=== PATIENT | male | born 1980 | race Hispanic/Latino ===

== ENCOUNTER → 2018-12-15 | Day surgery (SDC) | payer BC ==
[~2018-12-15] MED LIST: FENTANYL CITRATE/PF 100MCG/2 ML INJ ONE; GLUCAGON FOR INJ 1 MG VIAL ONE; HYOSCYAMINE SULFATE 0.5 MG/ML INJ ONE; LIDOCAINE HCL 2% LOCAL INJ 5 ML SDV VIAL INJ ONE; MIDAZOLAM HCL 2 MG/2 ML VIAL ONE; PROPOFOL IV EMULSION 10 MG/ML 50 ML VIAL ONE
--- NOTE | 2018-12-15 20:50 | Operative Report ---
DATE OF PROCEDURE: 12/15/2018 SURGEON: Fabrice Najera MD PROCEDURE: EGD with biopsies and colonoscopy with polypectomy and biopsies. INDICATIONS: 1. For EGD, upper abdominal pain. 2. For colonoscopy, right lower quadrant abdominal pain. MEDICATION: The patient was done under MAC. Please see anesthesiologist's note. PROCEDURE IN DETAIL: With the patient in left lateral decubitus position, flexible fiberoptic Olympus gastroscope was introduced into the esophagus under direct visualization without any difficulty. There was some patchy erythema noted in distal esophagus. The scope was then advanced with ease into the stomach. Mucosa overlying the antrum and the body revealed some patchy erythema and low grade to moderate edema and biopsies were obtained and sent to stain for H. pylori. Pylorus was of normal contour and shape, was intubated with ease and the scope was advanced all the way to the second portion of the duodenum. Biopsies were obtained from the proximal second portion. There were some mild inflammatory changes noted in the duodenal bulb. Biopsies were obtained. The scope was then withdrawn back into the stomach and retroflexed. Mucosa overlying the fundus and the cardia appeared to be within normal limits. The scope was then straightened out, it was subsequently withdrawn. The patient tolerated the procedure well. IMPRESSION: 1. Distal esophagitis, mild. 2. Gastritis, biopsied. Biopsies sent to stain for Helicobacter pylori. 3. Duodenitis, mild. PLAN: Follow up histology. Initiate Protonix 40 mg one p.o. q.a.m. a.c. The patient was then turned around. After adequate lubrication of the anal canal, flexible fiberoptic Olympus colonoscope was inserted into the rectum with ease and advanced all the way to the cecum. Ileocecal valve was intubated and the scope was advanced into the terminal ileum. Biopsies were obtained. The scope was then withdrawn back into the colon and biopsies were obtained from the cecum, attempting to elucidate the cause of the patient's right lower quadrant pain. Overall, the mucosa overlying the cecum, ascending, transverse, descending, and sigmoid grossly appeared to be within normal limits. One polyp was hot biopsied from the rectum. The scope was then retroflexed into the distal rectum and small internal hemorrhoids were noted, none of which was actively bleeding. The scope was then straightened out, it was subsequently withdrawn. The patient tolerated the procedure well. IMPRESSION: 1. Rectal polyp, hot biopsied. 2. Internal hemorrhoids, none actively bleeding. PLAN: Follow up histology. Initiate high-fiber low-fat diet. Increase oral intake to a minimum of 64 ounces of water a day. Start VSL #3 one p.o. daily. Timing of followup colonoscopy, pending pathology report. If polyp turns out to be of the adenomatous variety, then a followup colonoscopy in 5 years would be in order. Fabrice Najera MD [facility] [place] /[id number] cc: Aury Fleming MD
--- OUTSIDE RECORDS SUMMARY | 2018-12-17 10:34 | XMS REPORT | Clinical Summary ---
Author Author [facility] Address Unknown Phone Unavailable Care Team Providers Care Associate Merchant Name Role Phone Chinedu Ross MD PCP Allergies No Known Allergies Medications End Date Status Medication Sig Dispensed Refills Start Date 03/25/2018 testosterone cypionate Inject 1 mL 5 mL 4 (DEPO-TESTOSTERONE) 200 (200 mg 7 mg/mL total) into injectionIndications: the shoulder, Hypogonadism in male thigh, or buttocks every 14 (fourteen) days for 360 days. Active Problems Problem Noted Date Hypogonadism in male 03/10/2017 Family History Medical History Relation Name Comments No Known Problems Father Diabetes Mother Relation Name Status Comments Father Alive Mother Alive Social History Date Tobacco Use Types Packs/Day Years Used Never Smoker Alcohol Use Drinks/Week oz/Week Comments No Sex Assigned at Date Recorded Not on file Industry Job Start Date Occupation Not on file Not on file Not on file Travel End Travel History Travel Start No recent travel history available. Last Filed Vital Signs Not on file Plan of Treatment Health Maintenance Due Date Last Done Comments INFLUENZA VACCINE 05/16/2018 Results Not on fileafter 12/16/2017 Insurance Payer Benefit Subscriber ID Type Phone Address Plan / Group BCBS BCBS xxxxxxxxxxxx PPO CHOICE PPO/JERRY L EMPL PPO Advance Directives Patient has advance care planning documents on file. For more information, abdiaziz brooks contact: Pierre Alvarez [address] [place] [address]
== END | disposition home or self-care (01) ==
LOC: OR 14:33
PROVIDERS: ATTEND Internal Medicine Gastroenterology
DX: K29.80 Duodenitis without bleeding (principal); K20.9 Esophagitis, unspecified; K29.50 Unspecified chronic gastritis without bleeding; K29.40 Chronic atrophic gastritis without bleeding; B96.81 Helicobacter pylori [H. pylori] as the cause of diseases classified elsewhere; K62.1 Rectal polyp; K64.8 Other hemorrhoids; R10.31 Right lower quadrant pain; R19.03 Right lower quadrant abdominal swelling, mass and lump; R14.2 Eructation; F41.9 Anxiety disorder, unspecified
CPT/HCPCS: 43239; 45380; 45384; J1610; J1980; J2001; J2250; J2704; 45378

== ENCOUNTER 2019-03-01 19:28 | Emergency (ER) | payer BC ==
[~2019-03-01] VITALS: Ht 177.8 cm; Wt 86.2 kg
--- OUTSIDE RECORDS SUMMARY | 2019-03-01 19:31 | XMS REPORT ---
Author Author [facility] Address Unknown Phone Unavailable Care Team Providers Care Sand Conditioner Name Role Phone Unavailable Unavailable Problems This patient has no known problems. Allergies, Adverse Reactions, Alerts This patient has no known allergies or adverse reactions. Medications This patient has no known medications. Encounters Start Date/Time End Date/Time Encounter Type Admission Type Attending [facility] Care Facility Care Department Encounter ID 2019-01-19 06:29:00 2019-01-19 06:29:00 Emergency E [id number] 2018-03-01 22:09:00 2018-03-01 22:09:00 Emergency E [facility] [id number]
== END 2019-03-01 19:48 | disposition home or self-care (01) ==
LOC: ER 19:28
DX: N63.10 Unspecified lump in the right breast, unspecified quadrant (principal)
CPT/HCPCS: 99282

== ENCOUNTER → 2019-03-06 | Outpatient (CLI) | payer BC ==
--- NOTE | 2019-03-06 19:02 | Diagnostic Imaging Report ---
Hepatobiliary Scan with Gallbladder Ejection Fraction Clinical information: RUQ abdominal pain x 3 weeks Report: Following intravenous administration of 6.8 millicuries of Tc-99m mebrofenin, dynamic images of the abdomen in the anterior projection were obtained through 30 minutes. Sincalide (CCK analog) 1.8 micrograms was administered intravenously over 30 minutes with additional imaging for determination of gallbladder ejection fraction. Perfusion to the liver is normal. Extraction of tracer from the blood pool by the liver parenchyma is normal. Tracer is seen promptly within the biliary tract. The gallbladder begins to fill by 7 minutes post-injection of tracer and fills adequately. Tracer is seen in the small bowel during the sincalide infusion. The gallbladder ejection fraction with administration of sincalide is 56% (normal greater than 40%). Impression: 1. Filling of the gallbladder excludes the diagnosis of acute cystic duct obstruction/acute cholecystitis. 2. Normal gallbladder ejection fraction of 56% does not support the clinical diagnosis of chronic cholecystitis/gallbladder dyskinesia. Signed by: Dr. Irish Alvarez M.D. on 03/06/2019 6:59 PM
== END ==
LOC: NM 12:36
PROVIDERS: ATTEND Internal Medicine Gastroenterology
DX: R10.11 Right upper quadrant pain (principal)
CPT/HCPCS: 78227; A9537